=== PATIENT | male | born 1990 | race Caucasian/White ===

== ENCOUNTER 2017-11-28 19:10 | Emergency (ER) | payer SELFPAY ==
[~2017-11-28] VITALS: Ht 165.1 cm; Wt 61.2 kg
[2017-11-28 19:13] VITALS: Ht 165.1 cm; Wt 61.2 kg
[2017-11-28 21:17] VITALS: BP 126/72
== END 2017-11-28 21:17 | disposition home or self-care (01) ==
LOC: ED 19:10
DX: M94.0 Chondrocostal junction syndrome [Tietze] (principal)
CPT/HCPCS: J1885